=== PATIENT | male | born 1940 | race Caucasian/White ===

== ENCOUNTER 2017-04-10 10:03 | Emergency (ER) | END 2017-04-10 16:37 | disposition home or self-care (01) ==

== ENCOUNTER 2018-03-05 11:13 | Emergency (ER) | END 2018-03-05 13:00 | disposition home or self-care (01) ==

== ENCOUNTER 2018-03-07 09:37 | Emergency (ER) | END 2018-03-07 12:26 | disposition home or self-care (01) ==

== ENCOUNTER 2018-03-08 00:23 | Emergency (ER) | END 2018-03-08 03:25 | disposition home or self-care (01) ==

== ENCOUNTER 2018-03-20 10:58 | Inpatient (IN) | END 2018-03-23 18:16 | disposition home health service (06) | DRG 853 ==